=== PATIENT | female | born 1945 | race Caucasian/White ===

== ENCOUNTER 2017-09-09 14:26 | Inpatient (IN) | payer MEDICARE, BC ==
[2017-09-09] MEDS ORDERED: NORMAL SALINE 1000 ML 1,000 ML IV PRN (14:57)
[2017-09-09] MEDS ORDERED: NORFLURANE/PENTAFLUOROPROPANE 30 ML SPRAY TP ONE (15:05)
--- NOTE | 2017-09-09 15:22 | ER Document Report ---
ED General - General Chief Complaint: Weakness Stated Complaint: WEAKNESS Time Seen by Provider: 09/09/17 14:37 Mode of Arrival: Ambulatory Information source: Patient Notes: 71 yr odl female hx of breast ca presents with complaints of generalized weakness, multiple falls and decreased oral intake. Pt denies any fevers or chills, but noted temp here 99.9. Pt admits ot a dry cough over the past day. pt is receiving chemotherapy. TRAVEL OUTSIDE OF THE [place] IN LAST 30 DAYS: No - HPI Onset: Other Onset/Duration: Persistent Quality of pain: No pain Severity: Mild Pain Level: Denies Associated symptoms: Nonproductive cough, Weakness Exacerbated by: Walking Relieved by: Denies Similar symptoms previously: Yes Recently seen / treated by doctor: Yes - Related Data Allergies/Adverse Reactions: No Known Allergies Allergy (Unverified 09/09/17 14:34) Past Medical History - Social History Smoking Status: Never Smoker Cigarette use (# per day): No Chew tobacco use (# tins/day): No Smoking Education Provided: No Family History: Reviewed & Not Pertinent Renal/ Medical History: Denies: Hx Peritoneal Dialysis Review of Systems - Review of Systems Notes: REVIEW OF SYSTEMS: CONSTITUTIONAL : Denies fever, chills, or sweats. Denies recent illness. EENT: Denies eye, ear, throat, or mouth pain or symptoms. Denies nasal or sinus congestion or discharge. Denies throat, tongue, or mouth swelling or difficulty swallowing. CARDIOVASCULAR: Denies chest pain. Denies palpitations or racing or irregular heart beat. Denies ankle edema. RESPIRATORY: Admits to cough GASTROINTESTINAL: Denies abdominal pain or distention. Denies nausea, vomiting , or diarrhea. Denies blood in vomitus, stools, or per rectum. Denies black, tarry stools. Denies constipation. GENITOURINARY: Denies difficulty urinating, painful urination, burning, frequency, blood in urine, or discharge. FEMALE GENITOURINARY: Denies vaginal bleeding, heavy or abnormal periods, irregular periods. Denies vaginal discharge or odor. MUSCULOSKELETAL: Denies back or neck pain or stiffness. Denies joint pain or swelling. SKIN: Denies rash, lesions or sores. HEMATOLOGIC : Denies easy bruising or bleeding. LYMPHATIC: Denies swollen, enlarged glands. NEUROLOGICAL: Admits to weakness PSYCHIATRIC: Denies anxiety or stress. Denies depression, suicidal ideation, or homicidal ideation. ALL OTHER SYSTEMS REVIEWED AND NEGATIVE. PHYSICAL EXAMINATION: GENERAL: Thin cachectic appearing female HEAD: Atraumatic, normocephalic. EYES: Pupils equal round and reactive to light, extraocular movements intact, conjunctiva are normal. ENT: Nares patent, oropharynx clear without exudates. Moist mucous membranes. NECK: Normal range of motion, supple without lymphadenopathy LUNGS: Breath sounds clear to auscultation bilaterally and equal. No wheezes rales or rhonchi. HEART: Tachycardic ABDOMEN: Soft, nontender, nondistended abdomen. No guarding, no rebound. No masses appreciated. Female : deferred Musculoskeletal: Normal range of motion, no pitting or edema. No cyanosis. NEUROLOGICAL: Cranial nerves grossly intact. Normal speech, normal gait. Normal sensory, motor exams PSYCH: Normal mood, normal affect. SKIN: Warm, Dry, normal turgor, no rashes or lesions noted. Dictation was performed using [employer] voice recognition software Physical Exam - Vital signs Vitals: Temp Pulse Resp BP Pulse Ox 99.9 F 115 H 20 123/85 90 L 09/09/17 14:33 09/09/17 14:33 09/09/17 14:33 09/09/17 14:33 09/09/17 14:33 Course - Re-evaluation Re-evalutation: 09/09/17 17:39 Patient was given IV fluids antibiotics given temperature 99.9 recent chemotherapy use. I believe his weakness is secondary to dehydration. CT chest is pending, patient was given 2 L of IV fluids and is otherwise in no distress at this time I will observe the patient in the hospital overnight - Vital Signs Vital signs: Temp Pulse Resp BP Pulse Ox 99.9 F 115 H 24 H 123/85 100 09/09/17 14:33 09/09/17 14:33 09/09/17 17:00 09/09/17 14:33 09/09/17 17:00 - Laboratory Result Diagrams: 09/09/17 16:22 09/09/17 16:22 Laboratory results interpreted by me: 09/09/17 09/09/17 09/09/17 16:22 16:22 16:33 WBC 3.8 L RBC 3.41 L Hgb 10.6 L Hct 30.9 L RDW 17.3 H Plt Count 132 L Lymphocytes % 9.6 L Absolute Lymphocytes 0.4 L Est GFR (Non-Af Amer) 53 L ALT 66 H Total Protein 5.5 L Albumin 3.3 L Urine Blood MODERATE H Ur Leukocyte Esterase SMALL H - Diagnostic Test Radiology reviewed: Image reviewed, Reports reviewed Discharge - Discharge Clinical Impression: Weakness, Tachycardia Chemotherapy adverse reaction Qualifiers: Encounter type: initial encounter Qualified Code(s): T45.1X5A - Adverse effect of antineoplastic and immunosuppressive drugs, initial encounter Condition: Stable Disposition: ADMITTED OBSERVATION Admitting Provider: Hospitalist Unit Admitted: Telemetry
[2017-09-09] MEDS ORDERED: CEFTRIAXONE 1 GM/D5W RTU 1 GM/50 ML RTUPB IV ONE (15:30)
[2017-09-09 15:36] LABS: VENOUS BLOOD BASE EXCESS -0.2 mmol/L; VENOUS BLOOD HCO3 24.3 mmol/L (20-32); VENOUS BLOOD PCO2 39.2 mmHg (35-63); VENOUS BLOOD PH 7.41 (7.30-7.42)
--- NOTE | 2017-09-09 16:07 | RADIOLOGY REPORT (SQ) ---
EXAM DESCRIPTION: CHEST PA/LAT COMPLETED DATE/TIME: 09/09/2017 3:52 pm REASON FOR STUDY: tachycardic COMPARISON: None. EXAM PARAMETERS: NUMBER OF VIEWS: two views TECHNIQUE: Digital Frontal and Lateral radiographic views of the chest acquired. RADIATION DOSE: NA LIMITATIONS: none FINDINGS: LUNGS AND PLEURA: No opacities, masses or pneumothorax. No pleural effusion. MEDIASTINUM AND HILAR STRUCTURES: No masses or contour abnormalities. HEART AND VASCULAR STRUCTURES: Heart normal size. No evidence for failure. BONES: No acute findings. HARDWARE: Port-A-Cath is identified with its tip projected the level of the superior vena cava. OTHER: No other significant finding. IMPRESSION: NO SIGNIFICANT RADIOGRAPHIC FINDING IN THE CHEST. TECHNICAL DOCUMENTATION: JOB ID: [id number] [employer] All Rights Reserved
[2017-09-09 16:50] LABS: ABSOLUTE EOSINOPHILS # (AUTO) 0.1 10^3/uL (0.0-0.6); ABSOLUTE LYMPHOCYTES (AUTO) 0.4 10^3/uL (0.5-4.7); ABSOLUTE MONOCYTES (AUTO) 0.4 10^3/uL (0.1-1.4); BASOPHILS % (AUTO) 0.5 % (0-2); EOSINOPHILS % (AUTO) 1.7 % (0-6); HEMATOCRIT 30.9 % (36.0-47.0); HEMOGLOBIN 10.6 g/dL (12.0-15.5); HGB HCT DIFFERENCE 0.9; LYMPHOCYTES % (AUTO) 9.6 % (13-45); MEAN CORPUSCULAR HGB CONC 34.3 g/dL (32.0-36.0); MEAN CORPUSCULAR VOLUME 91 fl (80-97); MONOCYTES % (AUTO) 10.6 % (3-13); RED BLOOD COUNT 3.41 10^6/uL (3.72-5.28); RED CELL DISTRIBUTION WIDTH 17.3 % (11.5-14.0); SEGMENTED NEUTROPHILS % (AUTO) 77.6 % (42-78); WHITE BLOOD COUNT 3.8 10^3/uL (4.0-10.5)
[2017-09-09 16:58] LABS: PROTHROMBIN TIME 12.9 SEC (11.4-15.4)
[2017-09-09 17:13] LABS: ALANINE AMINOTRANSFERASE 66 U/L (9-52); ALBUMIN 3.3 g/dL (3.5-5.0); ALKALINE PHOSPHATASE 82 U/L (38-126); ANION GAP 11 (5-19); ASPARTATE AMINO TRANSFERASE 24 U/L (14-36); BILIRUBIN,DIRECT 0.3 mg/dL (0.0-0.4); BILIRUBIN,TOTAL 0.4 mg/dL (0.2-1.3); BLOOD UREA NITROGEN 15 mg/dL (7-20); CALCIUM 8.6 mg/dL (8.4-10.2); CARBON DIOXIDE 23 mmol/L (22-30); CHLORIDE 104 mmol/L (98-107); CREATININE RESULT 1.03 mg/dL (0.52-1.25); GLUCOSE 97 mg/dL (75-110); POTASSIUM 4.1 mmol/L (3.6-5.0); SODIUM 138.3 mmol/L (137-145); TOTAL PROTEIN 5.5 g/dL (6.3-8.2)
[2017-09-09 17:13] LABS: APPEARANCE,URINE SLIGHTLY-CLOUDY; BILIRUBIN,URINE NEGATIVE (NEGATIVE); GLUCOSE, URINE NEGATIVE (NEGATIVE); KETONES,URINE NEGATIVE (NEGATIVE); LEUKOCYTE ESTERASE,URINE SMALL (NEGATIVE); NITRITE,URINE NEGATIVE (NEGATIVE); PROTEIN,URINE NEGATIVE (NEGATIVE); URINE SPECIFIC GRAVITY 1.017; UROBILINOGEN,URINE NEGATIVE mg/dL (<2.0)
[2017-09-09] MEDS ORDERED: ACETAMINOPHEN 325 MG TABLET PO PRN (18:14)
[2017-09-09] MEDS ORDERED: ONDANSETRON HCL INJ/PF 4 MG/2 ML SDV IV PRN (18:22)
[2017-09-09] MEDS ORDERED: IMIPENEM/CILASTATIN SODIUM INJ 500 MG VIAL IV PRN (18:30)
[2017-09-09] MEDS ORDERED: VANCOMYCIN HCL INJ 1000 MG VIAL IV PRN (18:30)
--- NOTE | 2017-09-09 18:37 | PDOC H&P ---
History of Present Illness Admission Date/PCP: 09/09/17 Patient complains of: Generalized weakness History of Present Illness: 71 yr odl female hx of breast ca as well as small cell lung cancer who has received more than 70 bouts of radiation and more than 15 cycles of chemotherapy presents with complaints of generalized weakness. She has multiple falls and decreased oral intake. The patient will gag a lot due to the dryness of the throat. Patient does not feel well overall with some lightheadedness, generalized malaise, fatigue, and anorexia. Patient has a poor oral intake and at times will have some vomiting. Patient has constipation at times with diarrhea as well. Patient was admitted to [facility] twice and the last was admitted for 2 weeks where an endoscopy was obtained and reportedly having atrophy of the gastric mucosa. Patient and family reports he could not find any reason why she was having those symptoms. Pt denies any fevers or chills, but noted temp here 99.9. Pt admits ot a dry cough over the past day. She is beginning to have some sore scratchy throat. pt is still currently on chemotherapy. Past Medical History Malignancy Medical History: Reports: Breast Cancer, Lung Cancer - Small cell Past Surgical History Past Surgical History: Reports: Appendectomy, Mastectomy - Left side, Tonsillectomy, Other - Port-A-Cath placement, thyroid surgery Social History Information Source: Patient Smoking Status: Never Smoker Frequency of Alcohol Use: None Hx Recreational Drug Use: No Drugs: None Family History Family History: DM Parental Family History Reviewed: Yes Children Family History Reviewed: Yes Sibling(s) Family History Reviewed.: Yes Medication/Allergy Home Medications: Benazepril HCl [Lotensin 20 mg Tablet] 20 mg PO Q12 09/10/17 Carvedilol [Coreg 25 mg Tablet] 1 tab PO Q12 09/10/17 Hydrocodone/Acetaminophen [Webb 5-325 mg Tablet] 1 tab PO HSP PRN 09/10/17 Levothyroxine Sodium [Synthroid 0.15 mg Tablet] 1 tab PO DAILY 09/10/17 Allergies/Adverse Reactions: morphine Adverse Reaction (Verified 09/10/17 11:47) Hallucinations patient is uncertain of name Allergy (Uncoded 09/10/17 07:02) Review of Systems Constitutional: PRESENT: chills - Intermittently feels cold, weakness - Generalized, weight loss - Unquantified. ABSENT: fever(s), headache(s), night sweats, weight gain Eyes: ABSENT: visual disturbances Ears: ABSENT: hearing changes Nose, Mouth, and Throat: PRESENT: mouth pain - Dryness, sore throat. ABSENT: vertigo Cardiovascular: PRESENT: dyspnea on exertion. ABSENT: chest pain, edema, orthropnea, palpitations Respiratory: PRESENT: cough. ABSENT: dyspnea, hemoptysis, sputum Gastrointestinal: PRESENT: constipation, diarrhea, dysphagia, nausea, vomiting. ABSENT: abdominal pain, coffee ground emesis, hematemesis, hematochezia, melena Genitourinary: ABSENT: difficulty urinating, dysuria, hematuria Musculoskeletal: ABSENT: joint swelling Integumentary: ABSENT: pruritus, rash, wounds Neurological: PRESENT: dizziness - Occasional, weakness - Generalized. ABSENT: abnormal gait, abnormal speech, confusion, focal weakness, syncope Psychiatric: ABSENT: anxiety, depression, homidical ideation, suicidal ideation Endocrine: ABSENT: cold intolerance, heat intolerance, polydipsia, polyphagia, polyuria Hematologic/Lymphatic: ABSENT: easy bleeding, easy bruising Physical Exam Vital Signs: Temp Pulse Resp BP Pulse Ox 99.4 F 80 29 H 110/64 100 09/09/17 18:11 09/09/17 15:00 09/09/17 18:00 09/09/17 15:00 09/09/17 18:00 Intake & Output 09/08/17 09/09/17 09/10/17 06:59 06:59 06:59 Weight 80.5 kg General appearance: PRESENT: no acute distress, cooperative Head exam: PRESENT: atraumatic, normocephalic Eye exam: PRESENT: conjunctiva pale, EOMI, PERRLA. ABSENT: scleral icterus Ear exam: PRESENT: normal external ear exam. ABSENT: bleeding, drainage Mouth exam: PRESENT: dry mucosa, neck supple, tongue midline Throat exam: PRESENT: other - No thrush. ABSENT: post pharyngeal erythema, tonsillar erythema, tonsillar exudate Neck exam: ABSENT: carotid bruit, JVD, lymphadenopathy, thyromegaly Respiratory exam: PRESENT: clear to auscultation min. ABSENT: rales, rhonchi, wheezes Cardiovascular exam: PRESENT: RRR. ABSENT: diastolic murmur, rubs, systolic murmur Pulses: PRESENT: normal dorsalis pedis pul Vascular exam: PRESENT: normal capillary refill GI/Abdominal exam: PRESENT: normal bowel sounds, soft, tenderness - Minimal diffuse. ABSENT: distended, guarding, mass, organolmegaly, rebound Rectal exam: PRESENT: deferred Extremities exam: PRESENT: full ROM. ABSENT: calf tenderness, clubbing, pedal edema Neurological exam: PRESENT: alert, awake, oriented to person, oriented to place , oriented to time, oriented to situation, CN II-XII grossly intact. ABSENT: motor sensory deficit Psychiatric exam: PRESENT: appropriate affect, normal mood. ABSENT: homicidal ideation, suicidal ideation Skin exam: PRESENT: dry, intact, warm. ABSENT: cyanosis, rash Results Laboratory Results: 09/09/17 16:22 09/09/17 16:22 09/09/17 09/09/17 09/09/17 15:20 15:20 16:22 WBC 3.8 L RBC 3.41 L Hgb 10.6 L Hct 30.9 L MCV 91 MCH 31.0 MCHC 34.3 RDW 17.3 H Plt Count 132 L Seg Neutrophils % 77.6 Lymphocytes % 9.6 L Monocytes % 10.6 Eosinophils % 1.7 Basophils % 0.5 Absolute Neutrophils 3.0 Absolute Lymphocytes 0.4 L Absolute Monocytes 0.4 Absolute Eosinophils 0.1 Absolute Basophils 0.0 VBG pH 7.41 VBG pCO2 39.2 VBG HCO3 24.3 VBG Base Excess -0.2 Sodium Potassium Chloride Carbon Dioxide Anion Gap BUN Creatinine Est GFR ( Amer) Est GFR (Non-Af Amer) Glucose Lactic Acid 1.7 Calcium Total Bilirubin AST ALT Alkaline Phosphatase Total Protein Albumin Urine Color Urine Appearance Urine pH Ur Specific [place] Urine Protein Urine Glucose (UA) Urine Ketones Urine Blood Urine Nitrite Ur Leukocyte Esterase Urine WBC (Auto) Urine RBC (Auto) 09/09/17 09/09/17 16:22 16:33 WBC RBC Hgb Hct MCV MCH MCHC RDW Plt Count Seg Neutrophils % Lymphocytes % Monocytes % Eosinophils % Basophils % Absolute Neutrophils Absolute Lymphocytes Absolute Monocytes Absolute Eosinophils Absolute Basophils VBG pH VBG pCO2 VBG HCO3 VBG Base Excess Sodium 138.3 Potassium 4.1 Chloride 104 Carbon Dioxide 23 Anion Gap 11 BUN 15 Creatinine 1.03 Est GFR ( Amer) > 60 Est GFR (Non-Af Amer) 53 L Glucose 97 Lactic Acid Calcium 8.6 Total Bilirubin 0.4 AST 24 ALT 66 H Alkaline Phosphatase 82 Total Protein 5.5 L Albumin 3.3 L Urine Color YELLOW Urine Appearance SLIGHTLY-CLOUDY Urine pH 5.0 Ur Specific [place] 1.017 Urine Protein NEGATIVE Urine Glucose (UA) NEGATIVE Urine Ketones NEGATIVE Urine Blood MODERATE H Urine Nitrite NEGATIVE Ur Leukocyte Esterase SMALL H Urine WBC (Auto) 16 Urine RBC (Auto) 4 Impressions: Chest X-Ray 09/09/17 14:56 IMPRESSION: NO SIGNIFICANT RADIOGRAPHIC FINDING IN THE CHEST. Assessment & Plan - Diagnosis (1) Chemotherapy adverse reaction Qualifiers: Encounter type: initial encounter Qualified Code(s): T45.1X5A - Adverse effect of antineoplastic and immunosuppressive drugs, initial encounter Is this a current diagnosis for this admission?: Yes (2) Dehydration Is this a current diagnosis for this admission?: Yes (3) Urinary tract infection Qualifiers: Urinary tract infection type: site unspecified Hematuria presence: without hematuria Qualified Code(s): N39.0 - Urinary tract infection, site not specified Is this a current diagnosis for this admission?: Yes (4) Cough Is this a current diagnosis for this admission?: Yes (5) Thrombocytopenia Is this a current diagnosis for this admission?: Yes (6) Anemia of chronic disease Is this a current diagnosis for this admission?: Yes (7) Breast cancer Qualifiers: Breast location: unspecified site of breast Estrogen receptor status: unspecified Patient sex: female Laterality: left Qualified Code(s): C50.912 - Malignant neoplasm of unspecified site of left female breast (8) Small cell lung cancer Qualifiers: Laterality: unspecified laterality Qualified Code(s): C34.90 - Malignant neoplasm of unspecified part of unspecified bronchus or lung Is this a current diagnosis for this admission?: Yes - Time Time Spent: 50 to 70 Minutes - Inpatient Certification Based on my medical assessment, after consideration of the patient's comorbidities, presenting symptoms, or acuity I expect that the services needed warrant INPATIENT care.: Yes I certify that my determination is in accordance with my understanding of Medicare's requirements for reasonable and necessary INPATIENT services [42 CFR 412.3e].: Yes Medical Necessity: Significant Comorbidiites Make Outpatient Treatment Too Risky , Need Close Monitoring Due to Risk of Patient Decompensation, Need For IV Fluids, Need for IV Antibiotics, Risk of Complication if Not Cared For in Hospital Post Hospital Care: D/C Wound Care Rn Documentation - Plan Summary Plan Summary: [facility] We will hydrate the patient was normal saline. In the meantime we will culture the blood the urine and sputum. I will begin the patient on vancomycin and Primaxin pending cultures. We will obtain records from [facility]. DVT prophylaxis with Lovenox will be placed. We will monitor platelet count. Further testing depends on the initial evaluations outlined above.
[2017-09-09] MEDS ORDERED: [UNRECOGNIZED DRUG - REMARK] MC PRN (18:42)
[2017-09-09] MEDS ORDERED: VANCOMYCIN HCL 1,000 MG in DEXTROSE 5%-WATER 250 ML IV ONE (18:45)
[2017-09-09 19:20] LABS: THYROID STIMULATING HORMONE 0.19 uIU/mL (0.47-4.68)
[2017-09-09] MEDS ORDERED: HYDROCODONE/ACETAMINOPHEN 7.5-325 MG TABLET PO PRN (20:14)
[2017-09-09] MEDS ORDERED: HYDROCODONE/ACETAMINOPHEN 5-325 MG TABLET PO ONE (21:27)
[2017-09-09] MEDS ORDERED: LORAZEPAM 1 MG TABLET PO ONE (21:27)
[2017-09-09] MEDS ORDERED: LORAZEPAM 1 MG TABLET ONE (21:33)
--- NOTE | 2017-09-09 22:02 | RADIOLOGY REPORT (SQ) ---
EXAM DESCRIPTION: CT HEAD WITHOUT COMPLETED DATE/TIME: 09/09/2017 9:52 pm REASON FOR STUDY: fall with hit head R29.6 REPEATED FALLS COMPARISON: None. TECHNIQUE: Axial images acquired through the brain without intravenous contrast. Images reviewed wi th bone, brain and subdural windows. Images stored on PACS. All CT scanners at this facility use dose modulation, iterative reconstruction, and/or weight based d osing when appropriate to reduce radiation dose to as low as reasonably achievable (ALARA). [facility]: Dose Right [facility]: CareDose [facility]: Dose Right [facility]: Teradose 4D [facility]: [employer] RADIATION DOSE: mGy. LIMITATIONS: None. FINDINGS: VENTRICLES: Normal size and contour. CEREBRUM: No masses. No hemorrhage. No midline shift. No evidence for acute infarction. Normal gra y/white matter differentiation. No areas of low density in the white matter. CEREBELLUM: No masses. No hemorrhage. No alteration of density. No evidence for acute infarction. EXTRAAXIAL SPACES: No fluid collections. No masses. ORBITS AND GLOBE: No intra- or extraconal masses. Normal contour of globe without masses. CALVARIUM: No fracture. PARANASAL SINUSES: No fluid or mucosal thickening. SOFT TISSUES: No mass or hematoma. OTHER: No other significant finding. IMPRESSION: NORMAL BRAIN CT WITHOUT CONTRAST. EVIDENCE OF ACUTE STROKE: NO. COMMENT: Quality ID # [id number]: Final reports with documentation of one or more dose reduction techniques (e.g., Automated exposure control, adjustment of the mA and/or kV according to patient size, use of iterative reconstruction technique) TECHNICAL DOCUMENTATION: JOB ID: [id number] [email or web address]- All Rights Reserved
[2017-09-09] MEDS ORDERED: BENAZEPRIL HCL 10 MG TABLET PO ONE (23:00)
[2017-09-09] MEDS ORDERED: CARVEDILOL 12.5 MG TABLET PO ONE (23:00)
[2017-09-09] MEDS: IMIPENEM/CILASTATIN SODIUM 500 MG in NORMAL SALINE 100 ML IV SCH (23:53)
[2017-09-10] MEDS ORDERED: IMIPENEM/CILASTATIN SODIUM INJ 500 MG VIAL IV ONE (01:08)
[2017-09-10] MEDS ORDERED: BENAZEPRIL HCL 10 MG TABLET ONE (01:09)
[2017-09-10] MEDS ORDERED: INFLUENZA ADLT QUAD (36MOS+) 2017-18 VAC 0.5 ML SYR IM PRN (03:23)
[2017-09-10] MEDS: IMIPENEM/CILASTATIN SODIUM 500 MG in NORMAL SALINE 100 ML IV SCH ×4 (04:00→21:31)
[2017-09-10] MEDS: NORMAL SALINE 1000 ML 1,000 ML IV PRN ×2 (05:02→15:17)
[2017-09-10 05:38] LABS: HEMATOCRIT 26.9 % (36.0-47.0); HEMOGLOBIN 9.2 g/dL (12.0-15.5); HGB HCT DIFFERENCE 0.7; MEAN CORPUSCULAR HEMOGLOBIN 30.9 pg (27.0-33.4); MEAN CORPUSCULAR HGB CONC 34.1 g/dL (32.0-36.0); MEAN CORPUSCULAR VOLUME 91 fl (80-97); RED BLOOD COUNT 2.97 10^6/uL (3.72-5.28); RED CELL DISTRIBUTION WIDTH 16.9 % (11.5-14.0); WHITE BLOOD COUNT 2.8 10^3/uL (4.0-10.5)
[2017-09-10 05:47] LABS: ANION GAP 9 (5-19); BLOOD UREA NITROGEN 14 mg/dL (7-20); CALCIUM 7.7 mg/dL (8.4-10.2); CARBON DIOXIDE 23 mmol/L (22-30); CHLORIDE 107 mmol/L (98-107); CREATININE RESULT 1.07 mg/dL (0.52-1.25); GLUCOSE 94 mg/dL (75-110); POTASSIUM 3.9 mmol/L (3.6-5.0); SODIUM 138.5 mmol/L (137-145)
[2017-09-10] MEDS: LANSOPRAZOLE 30 MG TAB.RAP.DR PO SCH (06:31)
[2017-09-10] MEDS: LORAZEPAM 1 MG TABLET PO PRN ×2 (06:33→21:31)
--- NOTE | 2017-09-10 09:20 | EKG REPORT ---
SEVERITY:- ABNORMAL ECG - SINUS OR ECTOPIC ATRIAL TACHYCARDIA PROBABLE LEFT ATRIAL ABNORMALITY BORDERLINE LEFT AXIS DEVIATION BORDERLINE T ABNORMALITIES, INFERIOR LEADS : Confirmed by: Lidia Odonnell MD 10-Sep-2017 09:19:13
[2017-09-10] MEDS: NAPROXEN 250 MG TABLET PO PRN (09:24)
[2017-09-10] MEDS: ENOXAPARIN SODIUM INJ 40 MG/0.4 ML DISP.SYRIN SUBCUT SCH (09:27)
[2017-09-10] MEDS ORDERED: BENAZEPRIL HCL 10 MG TABLET PO SCH (10:00)
[2017-09-10] MEDS ORDERED: CARVEDILOL 12.5 MG TABLET PO SCH (10:00)
[2017-09-10] MEDS ORDERED: HYDROCODONE/ACETAMINOPHEN 5-325 MG TABLET PO PRN (14:33)
--- NOTE | 2017-09-10 17:05 | PDOC PROGRESS REPORT ---
Subjective Progress Note for:: 09/10/17 Subjective:: Generalized malaise and fatigue slightly improved. Patient started to develop some sore throat. No diarrhea at this time. No nausea or vomiting. Patient has low-grade fever. Denies being short of breath at this time. Physical Exam Vital Signs: Temp Pulse Resp BP Pulse Ox 97.7 F 83 18 102/86 H 99 09/10/17 16:00 09/10/17 16:00 09/10/17 16:00 09/10/17 16:00 09/10/17 16:00 Intake & Output 09/09/17 09/10/17 09/11/17 06:59 06:59 06:59 Intake Total 1230 Output Total 300 Balance 930 Weight 80.8 kg General appearance: PRESENT: no acute distress, cooperative Head exam: PRESENT: normocephalic Eye exam: PRESENT: conjunctiva pale, EOMI Mouth exam: PRESENT: dry mucosa, neck supple Throat exam: PRESENT: other - No thrush. ABSENT: post pharyngeal erythema, tonsillar erythema, tonsillar exudate Respiratory exam: PRESENT: clear to auscultation min, unlabored. ABSENT: wheezes Cardiovascular exam: PRESENT: RRR. ABSENT: gallop GI/Abdominal exam: PRESENT: soft. ABSENT: distended Extremities exam: PRESENT: other - Trace lower extremity edema Neurological exam: PRESENT: alert, awake, oriented to situation Skin exam: PRESENT: dry, warm. ABSENT: cyanosis Results Laboratory Results: 09/10/17 04:46 09/10/17 04:46 09/10/17 09/10/17 04:46 04:46 WBC 2.8 L RBC 2.97 L Hgb 9.2 L Hct 26.9 L MCV 91 MCH 30.9 MCHC 34.1 RDW 16.9 H Plt Count 111 L Sodium 138.5 Potassium 3.9 Chloride 107 Carbon Dioxide 23 Anion Gap 9 BUN 14 Creatinine 1.07 Est GFR ( Amer) > 60 Est GFR (Non-Af Amer) 51 L Glucose 94 Calcium 7.7 L Impressions: Head CT 09/09/17 00:00 IMPRESSION: NORMAL BRAIN CT WITHOUT CONTRAST. EVIDENCE OF ACUTE STROKE: NO. Chest X-Ray 09/09/17 14:56 IMPRESSION: NO SIGNIFICANT RADIOGRAPHIC FINDING IN THE CHEST. Assessment & Plan - Diagnosis (1) Chemotherapy adverse reaction Qualifiers: Encounter type: initial encounter Qualified Code(s): T45.1X5A - Adverse effect of antineoplastic and immunosuppressive drugs, initial encounter Is this a current diagnosis for this admission?: Yes (2) Dehydration Is this a current diagnosis for this admission?: Yes (3) Urinary tract infection Qualifiers: Urinary tract infection type: site unspecified Hematuria presence: without hematuria Qualified Code(s): N39.0 - Urinary tract infection, site not specified Is this a current diagnosis for this admission?: Yes (4) Cough Is this a current diagnosis for this admission?: Yes (5) Thrombocytopenia Is this a current diagnosis for this admission?: Yes (6) Anemia of chronic disease Is this a current diagnosis for this admission?: Yes (7) Breast cancer Qualifiers: Breast location: unspecified site of breast Estrogen receptor status: unspecified Patient sex: female Laterality: left Qualified Code(s): C50.912 - Malignant neoplasm of unspecified site of left female breast (8) Small cell lung cancer Qualifiers: Laterality: unspecified laterality Qualified Code(s): C34.90 - Malignant neoplasm of unspecified part of unspecified bronchus or lung Is this a current diagnosis for this admission?: Yes - Time Time Spent with patient: 15-24 minutes - Plan Summary Plan Summary: Continue hydration. Continue current antibiotic and pain management. Add ibuprofen or naproxen as needed for fever. Patient's reported allergy to Tylenol. Follow cultures. We will discuss her case with her oncologist in a.m. when clinic is available. Continue supportive care.
[2017-09-10] MEDS: VANCOMYCIN HCL 1,000 MG in DEXTROSE 5%-WATER 250 ML IV SCH (17:16)
[2017-09-10] MEDS: CARVEDILOL 12.5 MG TABLET PO SCH (21:31)
[2017-09-10] MEDS: BENAZEPRIL HCL 20 MG TABLET PO SCH (21:31)
[2017-09-10] MEDS ORDERED: (PENDING PHARMACY ID) (Carvedilol [Coreg 25 Mg Tablet] 1 TAB) PO SCH (22:00)
[2017-09-11] MEDS: NORMAL SALINE 1000 ML 1,000 ML IV PRN ×2 (03:39→17:20)
[2017-09-11] MEDS: IMIPENEM/CILASTATIN SODIUM 500 MG in NORMAL SALINE 100 ML IV SCH ×4 (03:39→21:40)
[2017-09-11] MEDS: LANSOPRAZOLE 30 MG TAB.RAP.DR PO SCH (06:13)
[2017-09-11 06:46] LABS: HEMATOCRIT 25.1 % (36.0-47.0); HEMOGLOBIN 8.7 g/dL (12.0-15.5); MEAN CORPUSCULAR HEMOGLOBIN 31.4 pg (27.0-33.4); MEAN CORPUSCULAR HGB CONC 34.7 g/dL (32.0-36.0); MEAN CORPUSCULAR VOLUME 91 fl (80-97); RED BLOOD COUNT 2.78 10^6/uL (3.72-5.28); RED CELL DISTRIBUTION WIDTH 16.7 % (11.5-14.0); WHITE BLOOD COUNT 2.5 10^3/uL (4.0-10.5)
[2017-09-11 07:06] LABS: ANION GAP 8 (5-19); BLOOD UREA NITROGEN 8 mg/dL (7-20); CALCIUM 7.9 mg/dL (8.4-10.2); CARBON DIOXIDE 25 mmol/L (22-30); CHLORIDE 106 mmol/L (98-107); CREATININE RESULT 0.78 mg/dL (0.52-1.25); GLUCOSE 87 mg/dL (75-110); MAGNESIUM 1.4 mg/dL (1.6-2.3); PHOSPHORUS 3.7 mg/dL (2.5-4.5); POTASSIUM 3.6 mmol/L (3.6-5.0); SODIUM 138.9 mmol/L (137-145)
[2017-09-11] MEDS ORDERED: HYDROCODONE/ACETAMINOPHEN 7.5-325 MG TABLET PO PRN (08:30)
[2017-09-11] MEDS: LEVOTHYROXINE SODIUM 0.15 MG TABLET PO SCH (08:30)
[2017-09-11] MEDS ORDERED: INFLUENZA ADLT QUAD (36MOS+) 2017-18 VAC 0.5 ML SYR IM PRN (08:30)
[2017-09-11] MEDS ORDERED: ONDANSETRON HCL INJ/PF 4 MG/2 ML SDV IV PRN (08:30)
[2017-09-11] MEDS ORDERED: LEVOTHYROXINE SODIUM 0.15 MG TABLET PO SCH ×2 (10:00)
[2017-09-11] MEDS: BENAZEPRIL HCL 20 MG TABLET PO SCH ×2 (10:55→21:40)
[2017-09-11] MEDS: CARVEDILOL 12.5 MG TABLET PO SCH ×2 (10:55→21:40)
[2017-09-11] MEDS: LORAZEPAM 1 MG TABLET PO PRN (10:56)
[2017-09-11] MEDS: ENOXAPARIN SODIUM INJ 40 MG/0.4 ML DISP.SYRIN SUBCUT SCH (10:56)
[2017-09-11] MEDS: NAPROXEN 250 MG TABLET PO PRN (10:56)
[2017-09-11] MEDS: MAGNESIUM SULFATE 1 GM/D5W 100 ML IV SCH ×2 (11:51→13:05)
--- NOTE | 2017-09-11 15:07 | PDOC PROGRESS REPORT ---
Subjective Progress Note for:: 09/11/17 Subjective:: Patient is starting to feel better this morning. No diarrhea, nausea or vomiting, chills nor fever. No shortness of breath nor chest pain or pleurisy. Sore throat has resolved. Abdominal discomfort is better. Still feels generally weak but able to get up better. Physical Exam Vital Signs: Temp Pulse Resp BP Pulse Ox 98.2 F 86 16 142/83 H 99 09/11/17 12:00 09/11/17 12:00 09/11/17 12:00 09/11/17 12:00 09/11/17 12:00 Intake & Output 09/10/17 09/11/17 09/12/17 06:59 06:59 06:59 Intake Total 1230 2331 Output Total 300 Balance 930 2331 Weight 80.8 kg 80.8 kg General appearance: PRESENT: no acute distress, cooperative Head exam: PRESENT: normocephalic Eye exam: PRESENT: EOMI Mouth exam: PRESENT: moist, neck supple Neck exam: ABSENT: JVD Respiratory exam: PRESENT: clear to auscultation min. ABSENT: rhonchi, wheezes Cardiovascular exam: PRESENT: RRR. ABSENT: gallop GI/Abdominal exam: PRESENT: hypoactive bowel sounds, soft Extremities exam: PRESENT: pedal edema - Trace pretibial edema Neurological exam: PRESENT: alert, awake, oriented to situation Psychiatric exam: ABSENT: agitated, anxious Focused psych exam: ABSENT: restlessness Skin exam: PRESENT: dry, warm. ABSENT: cyanosis Results Laboratory Results: 09/11/17 06:15 09/11/17 06:15 09/11/17 09/11/17 06:15 06:15 WBC 2.5 L RBC 2.78 L Hgb 8.7 L Hct 25.1 L MCV 91 MCH 31.4 MCHC 34.7 RDW 16.7 H Plt Count 104 L Sodium 138.9 Potassium 3.6 Chloride 106 Carbon Dioxide 25 Anion Gap 8 BUN 8 Creatinine 0.78 Est GFR ( Amer) > 60 Est GFR (Non-Af Amer) > 60 Glucose 87 Calcium 7.9 L Phosphorus 3.7 Magnesium 1.4 L Impressions: Head CT 09/09/17 00:00 IMPRESSION: NORMAL BRAIN CT WITHOUT CONTRAST. EVIDENCE OF ACUTE STROKE: NO. Chest X-Ray 09/09/17 14:56 IMPRESSION: NO SIGNIFICANT RADIOGRAPHIC FINDING IN THE CHEST. Assessment & Plan - Diagnosis (1) Chemotherapy adverse reaction Qualifiers: Encounter type: initial encounter Qualified Code(s): T45.1X5A - Adverse effect of antineoplastic and immunosuppressive drugs, initial encounter Is this a current diagnosis for this admission?: Yes (2) Dehydration Is this a current diagnosis for this admission?: Yes (3) Urinary tract infection Qualifiers: Urinary tract infection type: site unspecified Hematuria presence: without hematuria Qualified Code(s): N39.0 - Urinary tract infection, site not specified Is this a current diagnosis for this admission?: Yes (4) Cough Is this a current diagnosis for this admission?: Yes (5) Thrombocytopenia Is this a current diagnosis for this admission?: Yes (6) Anemia of chronic disease Is this a current diagnosis for this admission?: Yes (7) Breast cancer Qualifiers: Breast location: unspecified site of breast Estrogen receptor status: unspecified Patient sex: female Laterality: left Qualified Code(s): C50.912 - Malignant neoplasm of unspecified site of left female breast (8) Small cell lung cancer Qualifiers: Laterality: unspecified laterality Qualified Code(s): C34.90 - Malignant neoplasm of unspecified part of unspecified bronchus or lung Is this a current diagnosis for this admission?: Yes - Time Time Spent with patient: 25-34 minutes - Plan Summary Plan Summary: Patient is starting to improve now. We will continue hydration. Increase activity. Begin physical therapy. Continue current antibiotics for now and follow cultures. Replace magnesium. Check phosphorus level. Recheck electrolytes in the morning. If patient continues to improve may be able to be discharged home in the morning on oral antibiotics.
[2017-09-11] MEDS: VANCOMYCIN HCL 1,000 MG in DEXTROSE 5%-WATER 250 ML IV SCH (17:16)
[2017-09-12] MEDS: NORMAL SALINE 1000 ML 1,000 ML IV PRN (03:55)
[2017-09-12] MEDS: IMIPENEM/CILASTATIN SODIUM 500 MG in NORMAL SALINE 100 ML IV SCH ×2 (03:55→09:41)
[2017-09-12 05:32] LABS: HEMATOCRIT 24.9 % (36.0-47.0); HEMOGLOBIN 8.5 g/dL (12.0-15.5); HGB HCT DIFFERENCE 0.6; MEAN CORPUSCULAR HEMOGLOBIN 30.9 pg (27.0-33.4); MEAN CORPUSCULAR HGB CONC 34.2 g/dL (32.0-36.0); MEAN CORPUSCULAR VOLUME 90 fl (80-97); RED BLOOD COUNT 2.76 10^6/uL (3.72-5.28)
[2017-09-12 05:40] LABS: ANION GAP 7 (5-19); BLOOD UREA NITROGEN 7 mg/dL (7-20); CALCIUM 7.8 mg/dL (8.4-10.2); CARBON DIOXIDE 25 mmol/L (22-30); CHLORIDE 109 mmol/L (98-107); CREATININE RESULT 0.75 mg/dL (0.52-1.25); GLUCOSE 91 mg/dL (75-110); MAGNESIUM 1.9 mg/dL (1.6-2.3); POTASSIUM 3.6 mmol/L (3.6-5.0); SODIUM 140.6 mmol/L (137-145)
[2017-09-12] MEDS: LANSOPRAZOLE 30 MG TAB.RAP.DR PO SCH (06:31)
[2017-09-12 06:57] LABS: WHITE BLOOD COUNT 1.8 10^3/uL (4.0-10.5)
[2017-09-12] MEDS: CARVEDILOL 12.5 MG TABLET PO SCH (09:41)
[2017-09-12] MEDS: LEVOTHYROXINE SODIUM 0.15 MG TABLET PO SCH (09:41)
[2017-09-12] MEDS: BENAZEPRIL HCL 20 MG TABLET PO SCH (09:41)
[2017-09-12] MEDS: ENOXAPARIN SODIUM INJ 40 MG/0.4 ML DISP.SYRIN SUBCUT SCH (09:42)
[2017-09-12] MEDS ORDERED: VANCOMYCIN HCL 750 MG in DEXTROSE 5%-WATER 250 ML IV SCH (10:00)
[2017-09-12 12:06] VITALS: BP 145/89
--- NOTE | 2017-09-12 17:35 | PDOC DISCHARGE SUMMARY ---
General - Admit/Disc Date/PCP Admission Date/Primary Care Provider: 09/09/17 18:14 Discharge Date: 09/12/17 - Discharge Diagnosis (1) Dehydration Is this a current diagnosis for this admission?: Yes Summary: This has resolved with IV fluids. Most likely secondary to her medications. (2) Chemotherapy adverse reaction Is this a current diagnosis for this admission?: Yes (3) Anemia of chronic disease Is this a current diagnosis for this admission?: Yes (4) Breast cancer Is this a current diagnosis for this admission?: Yes (5) Small cell lung cancer Is this a current diagnosis for this admission?: Yes (6) Thrombocytopenia Is this a current diagnosis for this admission?: Yes Summary: Secondary to chemotherapeutic agents. (7) Urinary tract infection Is this a current diagnosis for this admission?: Yes Summary: Patient has no obvious growth in the urine. She had a blood culture that grew out coag negative staph. Will be sent home on Ceftin 10 days. - Additional Information Resuscitation Status: Full Code Discharge Diet: Regular Discharge Activity: Activity As Tolerated Home Medications: Benazepril HCl [Lotensin 20 mg Tablet] 20 mg PO Q12 09/10/17 Carvedilol [Coreg 25 mg Tablet] 1 tab PO Q12 09/10/17 Hydrocodone/Acetaminophen [[place] 5-325 mg Tablet] 1 tab PO HSP PRN 09/10/17 Levothyroxine Sodium [Synthroid 0.15 mg Tablet] 1 tab PO DAILY 09/10/17 Cefuroxime Axetil [Ceftin 500 mg Tablet] 1 tab PO BID #20 tablet 09/12/17 Flu Vacc [id number] Up/Pf [Fluzone Adlt Quad [id number] Vac 0.5 ml Syr] 0.5 ml IM .DISCHARGE PRN disp.syrin 09/12/17 History of Present Illness History of Present Illness: SHONDA GARCIA is a 71 year old female who is a history of breast cancer as well as small cell lung cancer who has had greater than 70 rounds of radiation and 15 cycles of chemotherapy who presented with generalized weakness. Patient has had decreased oral intake as well as problems with significant gag reflex secondary to dryness of the throat. Patient complained of lightheadedness, fatigue, anorexia. The patient has been followed at [facility] and recently had an endoscopy which showed some atrophy but no other abnormalities. The patient is admitted for IV fluids for treatment of dehydration. Hospital Course Hospital Course: 71-year-old female with history of breast and lung cancer who presented with dehydration. She was given IV fluids and had resolution of her dehydration. She was also started on empiric antibiotics and had a blood culture 1 that grew out coag negative staph. A urinary tract infection was treated however the culture did not grow out any particular organism. The patient will be sent home on an oral course of Ceftin. On the day of discharge she was tolerating diet without difficulty and she does have pancytopenia but this is secondary to her chemotherapy and has been chronic. Physical Exam Vital Signs: Temp Pulse Resp BP Pulse Ox 98.6 F 88 16 145/89 H 95 09/12/17 12:05 09/12/17 12:05 09/12/17 12:05 09/12/17 12:05 09/12/17 12:05 Intake & Output 09/11/17 09/12/17 09/13/17 06:59 06:59 06:59 Intake Total 2331 3500 Output Total 1000 Balance 2331 2500 Weight 80.8 kg 80.8 kg General appearance: PRESENT: no acute distress Eye exam: PRESENT: conjunctiva pink. ABSENT: scleral icterus Ear exam: PRESENT: normal external ear exam Mouth exam: PRESENT: moist, tongue midline Neck exam: ABSENT: JVD Respiratory exam: PRESENT: clear to auscultation min. ABSENT: rales, rhonchi, wheezes Cardiovascular exam: PRESENT: RRR. ABSENT: diastolic murmur, rubs, systolic murmur GI/Abdominal exam: PRESENT: normal bowel sounds, soft. ABSENT: distended, guarding, mass, organolmegaly, rebound, tenderness Extremities exam: ABSENT: calf tenderness, clubbing, pedal edema Neurological exam: PRESENT: alert, awake, oriented to person, oriented to place , oriented to time, oriented to situation, CN II-XII grossly intact. ABSENT: motor sensory deficit Psychiatric exam: PRESENT: appropriate affect Skin exam: PRESENT: dry, intact, warm. ABSENT: cyanosis, rash Results Laboratory Results: 09/12/17 03:50 09/12/17 03:50 09/12/17 09/12/17 03:50 03:50 WBC 1.8 L RBC 2.76 L Hgb 8.5 L Hct 24.9 L MCV 90 MCH 30.9 MCHC 34.2 RDW 17.0 H Plt Count 108 L Sodium 140.6 Potassium 3.6 Chloride 109 H Carbon Dioxide 25 Anion Gap 7 BUN 7 Creatinine 0.75 Est GFR ( Amer) > 60 Est GFR (Non-Af Amer) > 60 Glucose 91 Calcium 7.8 L Magnesium 1.9 Impressions: Head CT 09/09/17 00:00 IMPRESSION: NORMAL BRAIN CT WITHOUT CONTRAST. EVIDENCE OF ACUTE STROKE: NO. Chest X-Ray 09/09/17 14:56 IMPRESSION: NO SIGNIFICANT RADIOGRAPHIC FINDING IN THE CHEST. Qualifiers PATEINT BEING DISCHARGED WITH ANY OF THE FOLLOWING DIAGNOSIS?: No Plan Discharge Plan: Patient is discharged home in stable condition. Will follow up with primary care in 2 weeks. Time Spent: Greater than 30 Minutes
== END 2017-09-12 13:00 | disposition home or self-care (01) | DRG 640 ==
LOC: ER 14:26 → EH 18:14 → OBSVTOIN 18:14 → EH 19:17 → UNDOADMOB 19:17 → 5 22:08
DX: E86.0 Dehydration (principal); D61.810 Antineoplastic chemotherapy induced pancytopenia; N39.0 Urinary tract infection, site not specified; C34.90 Malignant neoplasm of unspecified part of unspecified bronchus or lung; D69.59 Other secondary thrombocytopenia; T45.1X5A Adverse effect of antineoplastic and immunosuppressive drugs, initial encounter; D63.8 Anemia in other chronic diseases classified elsewhere; C50.912 Malignant neoplasm of unspecified site of left female breast; Z91.81 History of falling; Z79.899 Other long term (current) drug therapy; Z92.3 Personal history of irradiation; Z90.12 Acquired absence of left breast and nipple; Z88.6 Allergy status to analgesic agent; Z83.3 Family history of diabetes mellitus
CPT/HCPCS: 36415; 70450; 71020; 80048; 80053; 81001; 82803; 82962; 83605; 83735; 84100; 84439; 84443; 85025; 85027; 85610; 87040; 87077; 87086; 87186; 93005; 93010; 96361; 96374; 99285; G8978-GP; G8979-GP; G8980-GP; J0696; J0743; J2405; J3370; J3475; J3490; J7030; J7060